=== PATIENT | male | born 1940 | race Caucasian/White ===

== ENCOUNTER 2017-06-09 03:58 | Outpatient (CLI) | payer MEDICARE ==
[~2017-06-09 03:58] MED LIST: METF500T4 PO
== END 2017-06-09 23:59 | disposition home or self-care (01) ==
LOC: DIABETIC 03:58
PROVIDERS: ATTEND Specialist
DX: E11.9 Type 2 diabetes mellitus without complications (principal)
CPT/HCPCS: G0108

== ENCOUNTER 2017-07-07 02:47 | Outpatient (CLI) | payer MEDICARE | END 2017-07-07 23:59 | disposition home or self-care (01) | LOC: DIABETIC 02:47 | PROVIDERS: ATTEND Specialist | DX: E11.65 Type 2 diabetes mellitus with hyperglycemia (principal); I10 Essential (primary) hypertension; Z85.46 Personal history of malignant neoplasm of prostate | CPT/HCPCS: G0109 ==

== ENCOUNTER 2017-08-18 02:37 | Outpatient (CLI) | payer MEDICARE | END 2017-08-18 23:59 | disposition home or self-care (01) | LOC: DIABETIC 02:37 | PROVIDERS: ATTEND Specialist | DX: E11.65 Type 2 diabetes mellitus with hyperglycemia (principal); I10 Essential (primary) hypertension; Z85.46 Personal history of malignant neoplasm of prostate | CPT/HCPCS: G0109 ==

== ENCOUNTER 2017-10-20 01:46 | Outpatient (CLI) | payer MEDICARE ==
[~2017-10-20 01:46] MED LIST changes: +METF-436 PO; -METF500T4 PO
== END 2017-10-20 23:59 | disposition home or self-care (01) ==
LOC: DIABETIC 01:46
PROVIDERS: ATTEND Specialist
DX: E11.65 Type 2 diabetes mellitus with hyperglycemia (principal); I10 Essential (primary) hypertension
CPT/HCPCS: G0108

== ENCOUNTER 2020-12-19 05:56 | Day surgery (SDC) | payer MEDICARE ==
[2020-12-18 10:11] LABS: BASOPHILS # (AUTO) 0.1 X10'3 (0-0.2); EOSINOPHILS # (AUTO) 0.1 X10'3 (0-0.9); EOSINOPHILS % (AUTO) 1.3 % (0-6); HEMATOCRIT 48.8 % (42.0-52.0); HEMOGLOBIN 16.3 g/dl (14.0-17.9); LYMPHOCYTES # (AUTO) 2.2 X10'3 (1.1-4.8); LYMPHOCYTES % (AUTO) 21.9 % (21-51); MEAN CORPUSCULAR HEMOGLOBIN 32.4 PG (27.0-31.0); MEAN CORPUSCULAR HGB CONC 33.4 g/dL (33.0-36.5); MEAN CORPUSCULAR VOLUME 96.9 FL (78-98); MEAN PLATELET VOLUME 8.3 FL (7.4-10.4); MONOCYTES # (AUTO) 0.8 X10'3 (0-0.9); MONOCYTES % (AUTO) 8.1 % (2-12); NEUTROPHILS # (AUTO) 6.7 X10'3 (1.8-7.7); NEUTROPHILS % (AUTO) 67.7 % (42-75); PLATELET COUNT 151 X10'3 (140-440); RED BLOOD COUNT 5.04 X10'6 (4.70-6.10); RED CELL DISTRIBUTION WIDTH 13.4 % (11.5-14.5); WHITE BLOOD COUNT 9.8 X10'3 (4.5-11.0)
[2020-12-18 10:24] LABS: PARTIAL THROMBOPLASTIN TIME 28 SECONDS (22-32)
[2020-12-18 10:28] LABS: ANION GAP 9 (8-16); BLOOD UREA NITROGEN 28 MG/DL (7-18); CALCIUM 8.7 MG/DL (8.5-10.1); CHLORIDE 104 MMOL/L (99-107); CREATININE 1.75 MG/DL (0.60-1.10); GLUCOSE 247 MG/DL (70-104); POTASSIUM 4.1 MMOL/L (3.5-5.1); SODIUM 142 MMOL/L (135-145); TOTAL CARBON DIOXIDE 28.9 MMOL/L (24-32); eGFR 38 ML/MIN
[2020-12-19] VITALS (12 sets, daily range): BP systolic 96–176; BP diastolic 49–81
[~2020-12-19] VITALS: Ht 188 cm; Wt 115.8 kg
[2020-12-19] MEDS ORDERED: diphenhydrAMINE 25mg capsule PO PRN (06:10)
[2020-12-19] MEDS ORDERED: LORazepam 0.5 MG tablet PO PRN (06:10)
[2020-12-19] MEDS ORDERED: normal saline 1,000 ML IV SCH (06:10)
[2020-12-19] MEDS ORDERED: ATOR40TA72 PO (06:29)
[2020-12-19] MEDS ORDERED: ASPI-1264 PO (06:29)
[2020-12-19] MEDS ORDERED: DONE10TA44 PO (06:29)
[2020-12-19] MEDS ORDERED: LEVO15TA6 PO (06:29)
[2020-12-19] MEDS ORDERED: MEMA10TA56 PO (06:29)
[2020-12-19] MEDS ORDERED: CARB1TAB36 PO (06:29)
[2020-12-19] MEDS ORDERED: LOSA50TA64 PO (06:29)
[2020-12-19] MEDS ORDERED: nitroGLYCERIN-Tridil 50MG/D5W 250 ML IV ONE (07:19)
[2020-12-19] MEDS ORDERED: verapamil 2.5 mg/ml inj IV ONE (07:20)
[2020-12-19] MEDS ORDERED: LIDOcaine 1% (10mg/ml)w/preservative injection 20ml MDV ONE (07:20)
[2020-12-19] MEDS ORDERED: iohexol 350 MG/ML 50ML vial IV ONE (07:20)
[2020-12-19] MEDS ORDERED: iohexol 350MG/ML 100ml bottle IV ONE ×2 (07:20→08:50)
[2020-12-19] MEDS ORDERED: heparin 1,000unit/ml 10ml vial 10 ML ONE (07:20)
[2020-12-19] MEDS ORDERED: midazolam 1 mg/ML 2ml injection ONE (07:21)
[2020-12-19] MEDS ORDERED: fentaNYL/PF 50MCG/1 ML 2ML syringe ONE (07:21)
[2020-12-19] MEDS ORDERED: sodium bicarbonate (8.4%) inj. 150 ML in sodium chloride 0.45% 1,000 ML IV ONE (09:40)
[2020-12-19] MEDS ORDERED: acetylcysteine 200 MG/ml 4ml vial PO SCH (10:00)
== END 2020-12-19 16:05 | disposition home or self-care (01) ==
LOC: SSTAY O 05:56
PROVIDERS: ATTEND Internal Medicine Cardiovascular Disease
DX: R94.39 Abnormal result of other cardiovascular function study (principal); R06.02 Shortness of breath; I25.10 Atherosclerotic heart disease of native coronary artery without angina pectoris; E78.5 Hyperlipidemia, unspecified; I10 Essential (primary) hypertension; E11.9 Type 2 diabetes mellitus without complications; G47.33 Obstructive sleep apnea (adult) (pediatric); Z79.82 Long term (current) use of aspirin; Z79.899 Other long term (current) drug therapy; K21.9 Gastro-esophageal reflux disease without esophagitis; M19.90 Unspecified osteoarthritis, unspecified site; Z85.46 Personal history of malignant neoplasm of prostate; Z90.79 Acquired absence of other genital organ(s); Z96.651 Presence of right artificial knee joint; Z98.890 Other specified postprocedural states; Z82.49 Family history of ischemic heart disease and other diseases of the circulatory system
CPT/HCPCS: 36415; 76937; 80048; 85025; 85610; 85730; 93005; 93458; 99152; 99153; C1760; C1769; C1894; J1644; J2001; J2250; J3010; J7030; Q0163; Q9967; A4620; A5120; A6258; J3490